=== PATIENT | male | born 1965 | race Caucasian/White ===

== ENCOUNTER 2016-09-24 20:18 | Emergency (ER) | payer OTHER ==
[~2016-09-24] VITALS: Ht 170.2 cm; Wt 88.5 kg
[~2016-09-24 20:18] MED LIST: CEPHALEXIN500 M1 PO; CIPRO 500MG TA500 MG PO; CIPROFLOXACIN500 MG PO; CLINDAMYCIN HC300 MG PO; DOLOPHINE10 MG PO; DOXYCYCLINE MO100 MG PO; FLAGYL 25O MG250 M1 PO; FLEXERIL10 MG PO; LISINOPRIL10 MG PO; METRONIDAZOLE500 MG PO; PERCOCET 325 MG1 TA3 PO; TAMSULOSIN HYD0.4 MG PO
--- NOTE | 2016-09-24 20:42 | ED CARDIAC/CP/PALPITATIONS ---
History of Present Illness General Chief Complaint: Chest Pain Stated Complaint: HIGH BLOOD PRESSURE, CHEST PAIN Source: patient, old records Exam Limitations: no limitations Vital Signs & Intake/Output Vital Signs & Intake/Output Vital Signs Date Time Temp Pulse Resp B/P B/P Pulse O2 O2 Flow FiO2 Mean Ox Delivery Rate 09/24 2121 87 18 146/74 96 Room Air Room Air 09/24 2025 97.7 90 18 165/96 97 Room Air Allergies Coded Allergies: tamsulosin (From FLOMAX) (SYNCOPE 09/24/16) Reconcile Medications Diazepam 5 MG TABLET 1 TAB PO BID PRN ANXIETY (Reported) Docusate Sodium (Colace) 100 MG CAPSULE 1 CAP PO PRN STOOL SOFTENER (Reported ) Hydroxychloroquine Sulfate 200 MG TABLET 1 TAB PO BID RA (Reported) Lactobacillus Combo No.10 (Probiotic) (Unknown Strength) CAPSULE (Unknown Dose ) PO DAILY PROBIOTIC (Reported) Methadone Hydrochloride (Methadone HCl) 10 MG TABLET 1 TAB PO TID CHRONIC PAIN (Reported) Oxycodone HCl/Acetaminophen (Percocet 7.5-325 MG Tablet) 7.5 MG-325 MG TABLET 1 TAB PO TID PAIN (Reported) Triage Note: PT TO TRIAGE FROM PAIN MANAGEMENT OFFICE FOR HIGH BP 190/95 AT THE OFFICE. PT ALSO REPORTS MIDSTERNAL CHEST PAIN 5/10 ON/OFF [id number]. PT RECENTLY DIAGNOSED WITH RHEUMATOID ARTHRITIS, CRONIC BACK PAIN, LYME. BP 165/96 IN TRIAGE. PT DENIES SOB,ABD PAIN,URINARY S/S. Triage Nurses Notes Reviewed? yes Onset: Abrupt Duration: intermittent, 3- 4 MONTHS Timing: recent history Quality/Severity: mild, pressure Location: central Radiation: no radiation Activities at Onset: rest Prior Chest Pain/Card Workup: no prior chest pain Aspirin Today: no aspirin today Associated Symptoms: DENIES HPI: This 51-year-old male with history of chronic back pain for which she is in pain management presents to ER for evaluation complaining of intermittent left-sided chest pain for the past 3-4 months. He states the pain last up to 10 seconds at a time comes on while at rest and is improved with exertion. He denies any associated shortness of breath diaphoresis fever chills abdominal pain nausea vomiting. The pain is nonradiating when it happens his last episode was earlier this morning at its worst 3 out of 10. No family history of sudden cardiac disease denies tobacco or drug use however is a daily drinker he reports to being under increased stress as he is going to lose his health insurance, and is going through divorce and is being cared for his son who is a paranoid schizophrenic. No recent immobilization or travel no leg swelling or pain (MANUELA DEGROOT) Past History Travel History Traveled to [place] past 21 day No Medical History Any Pertinent Medical History? see below for history Musculoskeletal: chronic back pain, rheumatoid arthritis, LYMES Other Medical Hx: Previous Lyme disease History of MRSA: No History of VRE: No History of CDIFF: No Surgical History Surgical History: appendectomy Psychosocial History Who do you live with Friend Services at Home None What is your primary language Welsh Tobacco Use: Never used Family History Family History, If Any: MOTHER (lung cancer). FATHER (HTN, DM, CAD). Hx Contributory? No (MANUELA DEGROOT) Review of Systems Review of Systems Constitutional: Reports: see HPI. All Other Systems: Reviewed and Negative Comments Review of systems: See HPI, All other systems negative. Constitutional, no chills no fever, no malaise HEENT: no sore throat no congestion Cardiovascular: chest pain , no palpitation Skin: no rashes, no change in skin Respiratory: No dyspnea no cough no sputum no hemoptysis GI: No nausea no vomiting, no diarrhea, no bloating/constipation : No dysuria Muscle skeletal: No joint pain, no joint swelling, no back pain, no neck pain, Neurologic: no headache Psych: stress no depression,. Heme/endocrine: No bruising Immunology: No lymphadenopathy (MANUELA DEGROOT) Physical Exam Physical Exam General Appearance: well developed/nourished, no apparent distress, alert, awake Cardiovascular: regular rate/rhythm Comments: Well-developed well-nourished person in no acute distress HEENT: Normal EENT exam; PERRL, EOMI. HEAD is atraumatic. moist mucous membranes. Neck: Supple, normal range of motion Back: Nontender, Full range of motion Cardiovascular: Regular rate and rhythms no murmurs rubs Respiratory: Chest nontender.There were no bony deformities, no asymmetry. No respiratory distress. Patient speaking in full complete sentences. Breath sounds clear to auscultation bilaterally: NO W/R/R Abdomen: Soft, nontender nondistended, no appreciable organomegaly. Normal bowel sounds. No rebound/guarding, Extremity: No edema, full range of motion of extremitieS Neuro: Alert oriented x3, motor sensory normal, There were no obvious focal neurologic abnormalities. Skin: No appreciable rash on exposed skin, skin is warm and dry. Psych: Mood and affect is normal, memory and judgment is normal. Core Measures ACS in differential dx? Yes Severe Sepsis Present: No Septic Shock Present: No (MANUELA DEGROOT) Progress Differential Diagnosis: AMI, atrial fibrillation, cholecystitis, musculoskeletal pain, myocarditis, pancreatitis, pericarditis, pneumonia, pneumothorax, pulmonary embolism, unstable angina Plan of Care: Orders Procedure Date/time Status Telemetry/Project Internship 09/24 2049 Active TROPONIN LEVEL 09/24 2049 Complete LIPASE 09/24 2049 Complete COMPREHENSIVE METABOLIC PANEL 09/24 2049 Complete CBC WITHOUT DIFFERENTIAL 09/24 2049 Complete EKG 09/24 2018 Active Laboratory Tests 09/24/162058: Anion Gap 11, Estimated GFR > 60, BUN/Creatinine Ratio 20.0, Glucose 84, Calcium 9.2, Total Bilirubin 1.1, AST 22, ALT 48, Alkaline Phosphatase 67, Troponin I < 0.01, Total Protein 7.1, Albumin 4.4, Globulin 2.7, Albumin/Globulin Ratio 1.6, Lipase 87, CBC w Diff NO MAN DIFF REQ, RBC 5.36, MCV 85.8, MCH 28.3, RDW 15.4 H , MPV 8.8, Gran % 61.0, Lymphocytes % 26.8, Monocytes % 10.3 H, Eosinophils % 1.5, Basophils % 0.4, Absolute Granulocytes 5.0, Absolute Lymphocytes 2.2, Absolute Monocytes 0.8 H, Absolute Eosinophils 0.1, Absolute Basophils 0, PUBS MCHC 32.9 L Patient denies any symptoms at this time resting comfortably normal sinus on the monitor x-ray labs ordered case discussed with Dr. levin Repeat evaluation patient has been resting comfortably in no apparent distress he has hadepisodes of pain here blood pressure has been within normal limits discussed with at length the need for close follow up with his primary care physician (MANUELA DEGROOT) Diagnostic Imaging: Viewed by Me: Radiology Read. Discussed w/RAD: Radiology Read. Radiology Impression: PATIENT: IZABEL DEE PRESENT AGE: 51 PATIENT ACCOUNT NO: [id number] : 64 LOCATION: [facility] ORDERING PHYSICIAN: MANUELA FELIPE SERVICE DATE: 09/24/16 EXAM TYPE: RAD - XRY- PORTABLE CHEST XRAY EXAMINATION: XR PORTABLE CHEST CLINICAL INFORMATION: Chest pain. Concern for cardiomegaly COMPARISON: None TECHNIQUE: Portable frontal view of the chest was obtained. 9:11 PM FINDINGS: Heart size is normal. No pulmonary vascular congestion. Lungs are clear. No pleural effusion pneumothorax. Multilevel degenerative spondylosis of dorsal spine IMPRESSION: No acute change of chest. Heart size is normal. DICTATED BY: DYLLAN WOLFF MD DATE/TIME DICTATED: 09/24/162126 CLINICAL REVIEW SPECIALIST:PERFECTO DATE/TIME TRANSCRIBED:09/24/162126 CONFIDENTIAL, DO NOT COPY WITHOUT APPROPRIATE AUTHORIZATION. <Electronically signed in Other Vendor System> SIGNED BY: DYLLAN WOLFF MD 09/24/162131 Initial ED EKG: normal intervals, normal p-waves, normal QRS complex, normal sinus rhythm () Prior EKG: unchanged (2014) Rhythm Strip: normal sinus rhythm (MANUELA DEGROOT) Departure Departure Time of Disposition: 2149 Disposition: HOME OR SELF CARE Condition: Stable Clinical Impression Primary Impression: Atypical chest pain Referrals: KING REDDY,SOLITARIO Goodman (PCP/Family) Additional Instructions: Follow up with your primary care physician and return to ER with any concerns. Departure Forms: Customer Survey General Discharge Information (MANUELA DEGROOT) PA/TOOL CRIB CLERK Co-Sign Statement Statement: ED Attending supervision documentation- x I saw and evaluated the patient. I have also reviewed all the pertinent lab results and diagnostic results. I agree with the findings and the plan of care as documented in the PA's/TOOL CRIB CLERK's documentation. [] I have reviewed the ED Record and agree with the PA's/TOOL CRIB CLERK's documentation. [] Additions or exceptions (if any) to the PAs/TOOL CRIB CLERK's note and plan are summarized below: [] (FLORY REDDY,ABDIAS) Critical Care Note Critical Care Note Critical Care Time: non-applicable (MANUELA DEGROOT)
[2016-09-24 21:13] LABS: ABSOLUTE BASOPHIL COUNT 0 /CUMM (0.0-0.2); ABSOLUTE EOSINOPHIL COUNT 0.1 /CUMM (0.0-0.7); ABSOLUTE LYMPH COUNT 2.2 /CUMM (1.2-3.4); ABSOLUTE MONOCYTE COUNT 0.8 /CUMM (0.10-0.60); BASOPHIL % 0.4 % (0.0-2.0); EOSINOPHIL % 1.5 % (0-5); MEAN CORPUSCULAR HGB 28.3 PG (27.0-31.0); MEAN CORPUSCULAR HGB CONC 32.9 G/DL (33.0-37.0); MEAN CORPUSCULAR VOLUME 85.8 FL (80.0-94.0); MEAN PLATELET VOLUME 8.8 FL (7.4-10.4); PLATELET COUNT 260 /CUMM (130-400); RBC DISTRIBUTION WIDTH 15.4 % (11.5-14.5); RED BLOOD CELL CT 5.36 /CUMM (4.70-6.10); WHITE BLOOD CELL COUNT 8.1 /CUMM (4.8-10.8)
[2016-09-24 21:22] VITALS: BP 146/74
--- NOTE | 2016-09-24 21:32 | RADIOLOGY REPORT ---
EXAMINATION: XR PORTABLE CHEST CLINICAL INFORMATION: Chest pain. Concern for cardiomegaly COMPARISON: None TECHNIQUE: Portable frontal view of the chest was obtained. 9:11 PM FINDINGS: Heart size is normal. No pulmonary vascular congestion. Lungs are clear. No pleural effusion pneumothorax. Multilevel degenerative spondylosis of dorsal spine IMPRESSION: No acute change of chest. Heart size is normal.
[2016-09-24] MEDS ORDERED: HYDROXYCHLOROQ200 M2 PO (21:33)
[2016-09-24] MEDS ORDERED: METHADONE HCL10 M1 PO (21:33)
[2016-09-24] MEDS ORDERED: PERCOCET 7.5-31 EACH PO (21:34)
[2016-09-24] MEDS ORDERED: DIAZEPAM5 M1 PO (21:34)
[2016-09-24] MEDS ORDERED: COLACE100 M1 PO (21:35)
[2016-09-24] MEDS ORDERED: PROBIOTIC1 EAC2 PO (21:35)
== END 2016-09-24 22:21 ==
LOC: ERH 20:18
PROVIDERS: Physician Assistant Medical
DX: R07.89 Other chest pain (principal)
CPT/HCPCS: 93005; 93010